=== PATIENT | male | born 1975 | race Caucasian/White ===

== ENCOUNTER 2016-08-08 11:36 | Emergency (ER) | payer OTHER ==
[2016-08-08 11:53] VITALS: BP 161/93
--- NOTE | 2016-08-08 12:11 | UC ---
Eye Complaint HPI - HPI Summary HPI Summary: patient was treated for conjunctivitis in the right eye with polytrim, is has not been effective, scleara is red, purulent drainage form right eye, photophobia, denies any pressure or pain, more irritation. patient has also ran out of his lexapro and remeron, - History of Current Complaint Chief Complaint: UCEye Stated Complaint: EYE COMPLAINT Time Seen by Provider: 08/08/16 12:05 Hx Obtained From: Patient Onset/Duration: Sudden Onset, Lasting Days Timing: Constant Severity Initially: Moderate Severity Currently: Severe Pain Intensity: 4 Pain Scale Used: 0-10 Numeric Location of Injury: Conjunctiva, Sclera Character: Foreign Body Sensation Aggravating Factor(s): Nothing Alleviating Factor(s): Nothing Associated Signs And Symptoms: Positive: Photophobia, Drainage (Purulent) - Risk Factors Penetrating Injury Risk Factor: Negative - Allergies/Home Medications Allergies/Adverse Reactions: Allergies Allergy/AdvReac Type Severity Reaction Status Date / Time No Known Allergies Allergy Verified 08/08/16 11:44 Home Medications: Home Medications Escitalopram Oxalate [Lexapro] 08/08/16 [History] PMH/Surg Hx/FS Hx/Imm Hx Previously Healthy: Yes - Surgical History Surgical History: None - Family History Known Family History: Negative: Cardiac Disease, Hypertension - Social History Alcohol Use: Daily Substance Use Type: Marijuana Substance Use Comment - Amount & Last Used: "once in a while" Smoking Status (MU): Light Every Day Tobacco Smoker Type: Cigarettes Amount Used/How Often: 10-15 cigs/day Review of Systems Constitutional: Negative Skin: Negative Eyes: Drainage, Eye Redness, Photophobia ENT: Negative Respiratory: Negative Cardiovascular: Negative Gastrointestinal: Negative Genitourinary: Negative Motor: Negative Neurovascular: Negative Musculoskeletal: Negative Neurological: Negative Psychological: Negative All Other Systems Reviewed And Are Negative: Yes Physical Exam Triage Information Reviewed: Yes Appearance: Well-Nourished, Ill-Appearing, Pain Distress Vital Signs: Initial Vital Signs Temp 97.4 F 08/08/16 11:45 Pulse 87 08/08/16 11:45 Resp 18 08/08/16 11:45 BP 161/93 08/08/16 11:45 Pulse Ox 100 08/08/16 11:45 Vital Signs Reviewed: Yes Eyes: Positive: Conjunctiva Inflamed, Discharge, Other: - sclera red and irritatied, PERRLA ENT Exam: Normal ENT: Positive: Hearing grossly normal, Pharynx normal, TMs normal Dental Exam: Normal Neck exam: Normal Neck: Positive: Supple, Nontender, No Lymphadenopathy Respiratory Exam: Normal Respiratory: Positive: Chest non-tender, Lungs clear, Normal breath sounds Cardiovascular Exam: Normal Cardiovascular: Positive: RRR, No Murmur, Pulses Normal Abdominal Exam: Normal Abdomen Description: Positive: Nontender, No Organomegaly, Soft Bowel Sounds: Positive: Present Musculoskeletal Exam: Normal Musculoskeletal: Positive: Strength Intact, ROM Intact, No Edema Neurological Exam: Normal Neurological: Positive: Alert, Muscle Tone Normal Psychological Exam: Normal Skin Exam: Normal Eye Complaint Course/Dx - Course Course Of Treatment: history obtained, exam performed, medication reviewed. medications ordered. - Differential Dx/Diagnosis Differential Diagnosis/HQI/PQRI: Conjunctivitis, Foreign Body, Penetrating Injury, Periorbital Cellulitis, Orbital Cellulitis Provider Diagnoses: right eye bacterial conjunctivitis. depression Discharge - Discharge Plan Condition: Stable Disposition: HOME Prescriptions: Erythromycin OPHTH.OINT* [Ilotycin OPHTH.OINT*] 1 applic RIGHT EYE TID #1 tube Escitalopram Oxalate [Lexapro] 20 mg PO DAILY #30 tab Mirtazapine TAB* [Remeron TAB*] 30 mg PO BEDTIME #30 tab Additional Instructions: take the medication as prescribed. practice good hand hygiene. follow up as needed.
== END 2016-08-08 12:50 | disposition home or self-care (01) ==
LOC: UCEAST 11:36
DX: H10.31 Unspecified acute conjunctivitis, right eye (principal); F32.9 Major depressive disorder, single episode, unspecified; F17.210 Nicotine dependence, cigarettes, uncomplicated
CPT/HCPCS: 99212; G0463

== ENCOUNTER 2017-06-16 11:27 | Emergency (ER) | payer OTHER ==
--- NOTE | 2017-06-16 14:33 | RAD ---
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 TECHNIQUE: 5 views of the lumbar spine were obtained. FINDINGS: The vertebra are in normal alignment. No fracture is seen. Disc spaces appear maintained. . IMPRESSION: No evidence of fracture or subluxation.
[2017-06-16 15:36] VITALS: BP 113/81
--- NOTE | 2017-06-16 17:48 | ED ---
Alvin Escobar Thomas, scribed for Wander Linn MD on 06/16/17 at 1318 . Back Pain - HPI Summary HPI Summary: The pt is a 41 y/o M presenting to the ED c/o lower back pain that began four days ago. He has little pain when he is still, and he has much pain when he moves position. The pain is described as sharp and tight. The pain is rated 6/ 10. The patient has treated the pain with ibuprofen SCARF GLUER, which has relieved pain. 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 Yesterday, the patient was sitting up from a stool when he heard a pop. Pt denies urinary or bowel incontinence. - History of Current Complaint Chief Complaint: EDBackInjuryPain Stated Complaint: BACK PAIN Time Seen by Provider: 06/16/17 12:59 Hx Obtained From: Patient Onset/Duration: Lasting Days - 4, Still Present Onset/Duration: Still Present Timing: Intermittent Back Pain Location: Is Discrete @ - lower Severity Currently: Moderate Pain Intensity: 4 Pain Scale Used: 0-10 Numeric Character: Sharp Aggravating Symptom(s): Other - Positional changes Alleviating Symptom(s): Nothing Associated Signs And Symptoms: Negative: Bladder Incontinence, Bowel Incontinence - Allergies/Home Medications Allergies/Adverse Reactions: Allergies Allergy/AdvReac Type Severity Reaction Status Date / Time No Known Allergies Allergy Verified 06/16/17 12:17 PMH/Surg Hx/FS Hx/Imm Hx Previously Healthy: No Endocrine/Hematology History: Denies: Hx Diabetes Cardiovascular History: Denies: Hx Hypertension Infectious Disease History: No Infectious Disease History: Denies: Traveled Outside the [place] in Last 30 Days - Family History Known Family History: Negative: Cardiac Disease, Hypertension - Social History Occupation: Employed Full-time Alcohol Use: Daily Alcohol Amount: 12-13 beers Substance Use Type: Reports: Marijuana Substance Use Comment - Amount & Last Used: "once in a while" Hx Tobacco Use: Yes Smoking Status (MU): Heavy Every Day Tobacco Smoker Type: Cigarettes Amount Used/How Often: 10-15 cigs/day Review of Systems Negative: Other - bowel incontinence Negative: incontinence Positive: Other - Back pain All Other Systems Reviewed And Are Negative: Yes Physical Exam - Summary Physical Exam Summary: Appearance: The patient is well-nourished in no acute distress and in no acute pain. Skin: The skin is warm and dry and skin color reflects adequate perfusion. HEENT: The head is normocephalic and atraumatic. The pupils are equal and reactive. The conjunctivae are clear and without drainage. Nares are patent and without drainage. Mouth reveals moist mucous membranes and the throat is without erythema and exudate. The external ears are intact. The ear canals are patent and without drainage. The tympanic membranes are intact. Neck: the neck is supple with full range of motion and non-tender. There are no carotid bruits. There is no neck vein distension. Respiratory: Chest is non-tender. Lungs are clear to auscultation and breath sounds are symmetrical and equal. Cardiovascular: Heart is regular rate and rhythm. There is no murmur or rub auscultated. There is no peripheral edema and pulses are symmetrical and equal. Abdomen: The abdomen is soft and non-tender. There are normal bowel sounds heard in all four quadrants and there is no organomegaly palpated. Musculoskeletal: He has back pain with straight leg raises at about 45 degrees bilaterally. Extremities are non-tender with full range of motion. There is good capillary refill. There is no peripheral edema or calf tenderness elicited. Neurological: Patient is alert and oriented to person, place and time. The patient has symmetrical motor strength in all four extremities. Cranial nerves are grossly intact. Deep tendon reflexes are symmetrical and equal in all four extremities. Psychiatric: The patient has an appropriate affect and does not exhibit any anxiety or depression. Triage Information Reviewed: Yes Vital Signs On Initial Exam: Initial Vitals Temp Pulse Resp BP Pulse Ox 98.5 F 79 17 130/83 95 06/16/17 11:30 06/16/17 11:30 06/16/17 11:30 06/16/17 11:30 06/16/17 11:30 Vital Signs Reviewed: Yes - Efren Coma Scale Coma Scale Total: 15 Diagnostics - Vital Signs Vital Signs Temp Pulse Resp BP Pulse Ox 06/16/17 12:19 82 98 06/16/17 12:18 136/85 06/16/17 11:30 98.5 F 79 17 130/83 95 - Laboratory Lab Statement: Any lab studies that have been ordered have been reviewed, and results considered in the medical decision making process. - Radiology XR L-Spine Xray Interpretation: No Acute Changes - No evidence of fracture or subluxation. ED physician has reviewed this report and agrees. Radiology Interpretation Completed By: Radiologist Back Pain Course/Dx - Course Course Of Treatment: Mr. Masters started with mid low back pain a few days ago and it is popping when he moves a ceertain way. He has no neurological involvement and films were negative here. I will treat him with a muscle relaxer (Ativan). - Diagnoses Provider Diagnoses: Back strain Discharge - Discharge Plan Condition: Stable Disposition: HOME Prescriptions: LORazepam TAB(*) [Ativan TAB(*)] 1 mg PO Q6H PRN #20 tab MDD 4 PRN Reason: Pain Patient Education Materials: Ibuprofen (By mouth), Low Back Strain (ED) Referrals: Rajat Muse MD [Primary Care Provider] - 3 Days Additional Instructions: Follow up with your primary care provider in 3 days. I recommend ibuprofen for the pain. Return to the emergency department for any new or worsening symptoms. The documentation as recorded by the Alvin woods Thomas accurately reflects the service I personally performed and the decisions made by me, Wander Linn MD.
== END 2017-06-16 15:36 | disposition home or self-care (01) ==
LOC: ED 11:27
DX: S39.012A Strain of muscle, fascia and tendon of lower back, initial encounter (principal); M54.5 Low back pain; F17.210 Nicotine dependence, cigarettes, uncomplicated; X58.XXXA Exposure to other specified factors, initial encounter; Y93.9 Activity, unspecified; Y92.9 Unspecified place or not applicable
CPT/HCPCS: 72110; 99282

== ENCOUNTER 2018-04-01 22:00 | Emergency (ER) | payer OTHER ==
[2018-04-01] MEDS ORDERED: Lidocaine 2% EPI 1:200000 MPF*10-20 ML VIAL INJ ONE (22:08)
[2018-04-01] MEDS ORDERED: Amoxicillin PO (*) 500 MG CAP PO ONE (22:31)
[2018-04-01] MEDS ORDERED: Diazepam SYRINGE* 5 MG/ML 2 ML SYRINGE (10 MG total) IV ONE (22:47)
[2018-04-01] MEDS ORDERED: LORazepam INJ* 2 MG/ML 1 ML VIAL IV PUSH ONE (22:58)
[2018-04-01] MEDS ORDERED: LORazepam INJ* 2 MG/ML 1 ML VIAL ONE (22:58)
[2018-04-01] MEDS ORDERED: Benzocaine/Butamben/Tetracain* SPRAY TOPICAL ONE (23:03)
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
[2018-04-02 00:41] VITALS: BP 128/90
== END 2018-04-02 00:28 | disposition home or self-care (01) ==
LOC: ED 22:00
DX: S01.81XA Laceration without foreign body of other part of head, initial encounter (principal); X99.1XXA Assault by knife, initial encounter; Y93.9 Activity, unspecified; Y92.9 Unspecified place or not applicable; F17.210 Nicotine dependence, cigarettes, uncomplicated; M25.551 Pain in right hip
CPT/HCPCS: 12011; 96374; 96375; 99282; A9270-GY; J2060

== ENCOUNTER 2018-04-07 18:37 | Emergency (ER) | payer OTHER ==
[2018-04-07] MEDS ORDERED: Amoxicillin/Clavulanate TAB* 875 MG PO ONE (19:52)
--- NOTE | 2018-04-07 19:54 | ED ---
Skin Complaint - HPI Summary HPI Summary: 42 year old male presents with suture removal and wound check today. He had sutures placed 5 days ago. He states that the sutures in the lip have been progressively been falling apart with last one yesterday. He states that he has been having some yellow drainage from the wound. He took last dose of antibiotic today. He has no medical conditions. He is a smoker. No fevers. No spreading redness. - History of Current Complaint Chief Complaint: EDLacSutureRecheck Time Seen by Provider: 04/07/18 18:53 Stated Complaint: SPLIT LIP/STITCHES CAME OUT Pain Intensity: 4 - Allergy/Home Medications Allergies/Adverse Reactions: Allergies Allergy/AdvReac Type Severity Reaction Status Date / Time No Known Allergies Allergy Verified 04/07/18 18:49 PMH/Surg Hx/FS Hx/Imm Hx Endocrine/Hematology History: Denies: Hx Diabetes Cardiovascular History: Denies: Hx Hypertension Infectious Disease History: Yes Infectious Disease History: Denies: Traveled Outside the [place] in Last 30 Days - Family History Known Family History: Negative: Cardiac Disease, Hypertension - Social History Alcohol Use: Daily Alcohol Amount: 12-13 beers Substance Use Type: Reports: Marijuana Substance Use Comment - Amount & Last Used: "once in a while" Hx Tobacco Use: Yes Smoking Status (MU): Heavy Every Day Tobacco Smoker Type: Cigarettes Amount Used/How Often: 10-15 cigs/day Review of Systems Negative: Fever Negative: Chest Pain Negative: Shortness Of Breath Positive: Other - lip laceration All Other Systems Reviewed And Are Negative: Yes Physical Exam Triage Information Reviewed: Yes Vital Signs On Initial Exam: Initial Vitals Temp Pulse Resp BP Pulse Ox 98.8 F 78 16 136/89 98 04/07/18 18:46 04/07/18 18:46 04/07/18 18:46 04/07/18 18:46 04/07/18 18:46 Vital Signs Reviewed: Yes Appearance: Positive: Well-Appearing Skin: Positive: Warm, Dry, Other - yellowish drainage and scabbing present in lip laceration with evidence of dehiscence of lip tissue that is 2cm by 1/2cm Eyes: Positive: Normal, EOMI, NOA, Conjunctiva Clear ENT: Positive: Pharynx normal Neck: Positive: Supple, Nontender, No Lymphadenopathy Respiratory/Lung Sounds: Positive: Clear to Auscultation, Breath Sounds Present Cardiovascular: Positive: Normal, RRR Musculoskeletal: Positive: Normal Neurological: Positive: Normal Psychiatric: Positive: Normal Diagnostics - Vital Signs Vital Signs Temp Pulse Resp BP Pulse Ox 04/07/18 18:46 98.8 F 78 16 136/89 98 - Laboratory Lab Statement: Any lab studies that have been ordered have been reviewed, and results considered in the medical decision making process. Course/Dx - Course Course Of Treatment: 42 year old male presents with suture removal and wound check today. He had sutures placed 5 days ago. He states that the sutures in the lip have been progressively been falling apart with last one yesterday. He states that he has been having some yellow drainage from the wound. He took last dose of antibiotic today. He has no medical conditions. He is a smoker. No fevers. No spreading redness. on exam has 2cm area of dehisence of upper lip with yellow drainage present. scabs over the laceration in skin above dirk border. discussed with dr vega will need to follow up with plastic as wound has dehsicence and is causing deformity to face. removed suture present above dirk border in skin, will have continue on augmentin. warned if develop spreading redness or fever to return. patient understnad and agrees with plan. - Differential Diagnoses - Skin Complaint Differential Diagnoses: Abscess, Cellulitis, Other - dehiscence - Diagnoses Provider Diagnoses: Visit for suture removal, Wound dehiscence Discharge - Sign-Out/Discharge Documenting (check all that apply): Patient Departure - Discharge Plan Condition: Good Disposition: HOME Prescriptions: Amoxicillin/Clavulanate TAB* [Augmentin TAB 875*] 875 mg PO BID #13 tab Patient Education Materials: Wound Dehiscence (ED) Referrals: Rajat Muse MD [Primary Care Provider] - Betito Calderon MD [Medical Doctor] - Additional Instructions: Follow up with plastic surgery Take augmentin twice a day for [address] warm compresses on the area Return to ED if develop any new or worsening symptoms - Billing Disposition and Condition Condition: GOOD Disposition: Home
[2018-04-07 20:07] VITALS: BP 125/82
== END 2018-04-07 20:05 | disposition home or self-care (01) ==
LOC: ED 18:37
DX: T81.30XA Disruption of wound, unspecified, initial encounter (principal); Z48.02 Encounter for removal of sutures; F17.210 Nicotine dependence, cigarettes, uncomplicated
CPT/HCPCS: A9270-GY

== ENCOUNTER 2018-07-11 08:16 | Emergency (ER) | payer OTHER ==
[2018-07-11 08:26] VITALS: BP 127/90
--- NOTE | 2018-07-11 09:32 | UC ---
Psychiatric Complaint HPI - HPI Summary HPI Summary: 42-year-old male comes in with chief complaint of anxiety. He's had anxiety for years and was taking Remeron 30 mg in the evening and Lexapro 20 mg daily. He just went to a rehabilitation where he did not have his medications. The rehabilitation was to get off of drugs and alcohol. When he got out of rehabilitation he contacted his primary care doctor to refill his prescriptions a Remeron and Lexapro and he has an appointment set up for August 06, 2018. His anxiety symptoms primarily are difficulty sleeping and difficulty concentration. His appetite is good he denies any suicidality. - History Of Current Complaint Chief Complaint: UCGeneralIllness Stated Complaint: ANXIETY/DEPRESSION Time Seen by Provider: 07/11/18 09:20 - Allergies/Home Medications Allergies/Adverse Reactions: Allergies Allergy/AdvReac Type Severity Reaction Status Date / Time No Known Allergies Allergy Verified 07/11/18 08:26 PMH/Surg Hx/FS Hx/Imm Hx Previously Healthy: Yes Psychological History: Anxiety, Depression - Surgical History Surgical History: None - Family History Known Family History: Negative: Cardiac Disease, Hypertension - Social History Alcohol Use: None Alcohol Amount: 12-13 beers Substance Use Type: None Substance Use Comment - Amount & Last Used: "once in a while" Smoking Status (MU): Heavy Every Day Tobacco Smoker Type: Cigarettes Amount Used/How Often: 10-15 cigs/day Review of Systems All Other Systems Reviewed And Are Negative: Yes Constitutional: Positive: Negative Skin: Positive: Negative Eyes: Positive: Negative ENT: Positive: Negative Respiratory: Positive: Negative Cardiovascular: Positive: Negative Gastrointestinal: Positive: Negative Motor: Positive: Negative Neurovascular: Positive: Negative Musculoskeletal: Positive: Negative Neurological: Positive: Negative Psychological: Positive: Anxious Is Patient Immunocompromised?: No Physical Exam Triage Information Reviewed: Yes Appearance: Well-Appearing, No Pain Distress, Well-Nourished Vital Signs: Initial Vital Signs Temp 97.5 F 07/11/18 08:21 Pulse 75 07/11/18 08:21 Resp 17 07/11/18 08:21 BP 127/90 07/11/18 08:21 Pulse Ox 100 07/11/18 08:21 Vital Signs Reviewed: Yes Eye Exam: Normal Eyes: Positive: Conjunctiva Clear Neck exam: Normal Neck: Positive: Supple Respiratory: Positive: Lungs clear, Normal breath sounds, No respiratory distress Cardiovascular: Positive: RRR Musculoskeletal Exam: Normal Musculoskeletal: Positive: Strength Intact, ROM Intact Neurological Exam: Normal Neurological: Positive: Alert, Muscle Tone Normal Psychological Exam: Normal Psychological: Positive: Age Appropriate Behavior Skin Exam: Normal Psych Complaint Course/Dx - Differential Dx/Diagnosis Provider Diagnosis: Anxiety Discharge - Sign-Out/Discharge Documenting (check all that apply): Patient Departure All imaging exams completed and their final reports reviewed: No Studies - Discharge Plan Condition: Stable Disposition: HOME Prescriptions: Escitalopram (NF) [Lexapro 20 mg (NF)] 20 mg PO DAILY #30 tab Mirtazapine TAB* [Remeron TAB*] 30 mg PO BEDTIME #30 tab Patient Education Materials: Anxiety (ED) Referrals: Rajat Muse MD [Primary Care Provider] - Additional Instructions: FOLLOW UP WITH YOUR DOCTOR SCHEDULED 08/07/18. GO TO THE EMERGENCY DEPARTMENT FOR ANY WORSENING OF YOUR CONDITION; ANXIETY, DEPRESSION, YOU FEEL LIKE HURTING YOURSELF OR QUESTIONS OR CONCERNS. - Billing Disposition and Condition Condition: STABLE Disposition: Home
== END 2018-07-11 09:35 | disposition home or self-care (01) ==
LOC: UCEAST 08:16
DX: F41.9 Anxiety disorder, unspecified (principal)
CPT/HCPCS: 99212; G0463